=== PATIENT | female | born 1960 | race Caucasian/White ===

== ENCOUNTER 2023-05-21 18:33 | Emergency (ER) | payer OTHER ==
[~2023-05-21] VITALS: Ht 165.1 cm; Wt 68.0 kg
--- NOTE | 2023-05-21 18:54 | NUR ---
[email or web address], medical screening exam in progress
[2023-05-21] MEDS ORDERED: ONDANSETRON 4 MG/2 ML VIAL ONE (18:57)
[2023-05-21] MEDS ORDERED: ONDANSETRON 4 MG/2 ML VIAL IV ONE (19:15)
[2023-05-21] MEDS ORDERED: MECLIZINE HCL 25 MG TABLET PO ONE (19:15)
[2023-05-21] MEDS ORDERED: IV NORMAL SALINE 1000 ML BAG IV ONE (19:15)
[2023-05-21] MEDS ORDERED: MECLIZINE HCL 25 MG TABLET ONE (19:15)
--- NOTE | 2023-05-21 19:15 | NUR ---
Nursing SBAR given to JAMMIE Veronica.
--- NOTE | 2023-05-21 19:20 | NUR ---
LAB AT BEDSIDE DRAWING BLOOD.
--- NOTE | 2023-05-21 19:20 | NUR ---
PT TO CT VIA [facility].
--- NOTE | 2023-05-21 19:21 | NUR ---
Made call to teleneurology.
[2023-05-21 19:50] LABS: MEAN CORPUSCULAR HEMOGLOBIN 29.8 uug (24.7-32.8); MEAN CORPUSCULAR VOLUME 89.8 fL (75.5-95.3); PLATELET COUNT (AUTO) 186 K/uL (179-408)
[2023-05-21 19:51] LABS: CARBON DIOXIDE 26 mmol/L (21-32); CHLORIDE 105 mmol/L (98-107); CREATININE 0.7 mg/dL (0.6-1.3); POTASSIUM 3.5 mmol/L (3.5-5.1); UREA NITROGEN, BLOOD 23 mg/dL (7-18)
[2023-05-21] MEDS ORDERED: LORAZEPAM 2 MG/1 ML VIAL IV ONE (20:00)
--- NOTE | 2023-05-21 20:05 | NUR ---
FOLLOW UP CALL TO TELE NEUROLOGY MADE. THEY DID THE NEUROLOGY EXAM WITH NO DEFICITS OBSERVED DR AYALA AT BEDSIDE.
[2023-05-21] MEDS ORDERED: LORAZEPAM 2 MG/1 ML VIAL ONE (20:21)
[2023-05-21] MEDS ORDERED: IV NORMAL SALINE 500 ML IV ONE (20:30)
[2023-05-21] MEDS ORDERED: SWABABLE VALVE TRANSFER SET EA MC ONE (21:08)
[2023-05-21] MEDS ORDERED: IOHEXOL 350 100 ML INFUS..BTL ONE (21:08)
[2023-05-21] MEDS ORDERED: IV NORMAL SALINE 250 ML IV ONE (21:09)
--- NOTE | 2023-05-21 21:22 | NUR ---
PT TO CT VIA [facility] FOR [facility] ANGIO.
[2023-05-21] MEDS ORDERED: METOCLOPRAMIDE HCL 10 MG/2 ML VIAL IV ONE (21:45)
[2023-05-21] MEDS ORDERED: METOCLOPRAMIDE HCL 10 MG/2 ML VIAL ONE (21:54)
[2023-05-21 22:00] VITALS: O2SAT 96
--- NOTE | 2023-05-21 22:10 | NUR ---
AT BEDSIDE FOR EVALUATION.
[2023-05-21] MEDS ORDERED: ONDA4TAB5 PO (22:25)
[2023-05-21] MEDS ORDERED: MECL-159 PO (22:25)
--- NOTE | 2023-05-21 22:40 | NUR ---
Patient does not wish to proceed with medical care recommended by ( JAMIE ). Patient given information related to possible complications, up to and including , which could occur as a result of leaving the hospital at this time. Patient verbalizes understanding of risks involved due to leaving against medical advice. Patient has signed AMA form. PT AMB OUT WITH STEAD[facility] GAIT WITH .
== END 2023-05-21 22:40 | disposition left against medical advice (07) ==
LOC: ER 18:46
DX: R42 Dizziness and giddiness (principal); R11.2 Nausea with vomiting, unspecified; I10 Essential (primary) hypertension; J45.909 Unspecified asthma, uncomplicated; E78.5 Hyperlipidemia, unspecified; Z79.899 Other long term (current) drug therapy
CPT/HCPCS: 99285; 70496; 96374; 96361; 96375; 80048; 83880; 85025; 85730; 84484; 36415; 93005; 70498; 70450; J2060; J2765; J2405; Q9967; J7040 ×2; A4663; J8597